=== PATIENT | female | born 1945 | race Asian ===

== ENCOUNTER 2017-11-01 03:18 | Inpatient (IN) | payer OTHER ==
[~2017-11-01] VITALS: Ht 154.9 cm; Wt 72.1 kg
--- NOTE | ~2017-11-01 | EKG ---
[place] [address] [address] [place] [address] ELECTROCARDIOGRAM REPORT Name: ANNIA FERGUSON CHA Room #: 219-P ADM IN M.R.#: [id number] Admission: 11/01/17 Attend Phys: Roland Main DO Discharge: Date of : 47 Report #: [id number] THIS REPORT FOR: //name// [facility] ED Test Date: 2017-11-01 Test Time: 03:31:22 Pat Name: ANNIA FERGUSON Department: Room: 219 Gender: F Behavioral Health Case Manager: EDGARD : 1945 Requested By: Hayley Briggs Order Number: [id number] MD: Jonh Bruno Measurements Intervals [place] Rate: 140 P: GA: QRS: 33 QRSD: 79 T: -30 QT: 314 QTc: 479 Interpretive Statements Atrial fibrillation Repolarization abnormality, prob rate related Borderline prolonged QT interval Compared to ECG 11/22/2015 00:31:02 Sinus rhythm no longer present Electronically Signed On 11-01-2017 9:06:50 TECHNOLOGY METHODOLOGY CONSULTANT by Jonh Bruno [email or web address] <ELECTRONICALLY SIGNED> By: Jonh Bruno MD, [facility] 11/01/17 0906 0 0 Jonh Bruno MD, [facility] /EPI
--- NOTE | ~2017-11-01 | 2DMMODE ---
[facility] [address] [employer] [place] [address] 2 D/M-MODE ECHOCARDIOGRAM Name: ANNIA FERGUSON [facility] Room #: 219-P ADM IN M.R.#: [id number] Admission: 11/01/17 Attend Phys: Roland Main, Discharge: Date of : 47 Date of Service: 11/01/17 1520 Report #: [id number] THIS REPORT FOR: //name// APPROVED REPORT Study performed: 11/01/2017 13:05:30 EXAM: Comprehensive 2D, Doppler, and color-flow Echocardiogram Patient Location: Bedside Room #: 219 Status: routine BSA: 1.71 BP: 127/77 mmHg Other Information Study Quality: Adequate Indications Diabetes Atrial Fibrillation Palpitations Syncope Hypertension/HDD 2D Dimensions RVDd: 26.31 mm LVEF(%): 85.54 (>50%) IVSd: 13.45 (7-11mm) LVOT Diam: 12.35 (18-24mm) LVDd: 29.33 mm PWd: 13.27 (7-11mm) LVDs: 13.72 (25-40mm) IVC: 15.00 mm Jain's LVEF: 85.54 % Volumes Left Atrial Volume (Systole) Single Plane 4CH: 27.48 mL Single Plane 2CH: 37.64 mL LA ESV Index: 21.00 mL/m2 Aortic Valve AoV Peak Dylan.: 1.28 m/s AO Peak Gr.: 7.85 mmHg LVOT Max P.82 mmHg LVOT Max V: 1.21 m/s LEXIE Vmax: 1.13 cm2 [facility] [address] [address] 2 D/M-MODE ECHOCARDIOGRAM Name: ANNIA FERGUSON NAYELI Room #: 219-P [facility] IN .R.#: [id number] Admission: 11/01/17 Attend Phys: Roland Main, Discharge: Date of : 47 Date of Service: 11/01/17 1520 Report #: [id number] Mitral Valve MV Decel. Time: 174.90 ms MV E Max Dylan.: 1.11 m/s Pulmonary Valve PV Peak Dylan.: 1.01 m/s PV Peak Gr.: 4.06 mmHg Tricuspid Valve TR Peak Dylan.: 2.22 m/s RAP Estimate: 5.00 mmHg TR Peak Gr.: 19.79 mmHg PA Pressure: 25.00 mmHg Left Ventricle The left ventricle is normal size. There is normal LV segmental wall motion. Mild to moderate concentric left ventricular hypertrophy. The left ventricular systolic function is normal. The left ventricular ejection fraction is within the normal range. LVEF is 60-65%. This study is not technically sufficient to allow evaluation of the LV diastolic function due to atrial fibrillation. Right Ventricle The right ventricle is normal size. The right ventricular systolic function is normal. Atria The left atrium size is normal. The right atrium size is normal. Aortic Valve The aortic valve is normal in structure. No aortic regurgitation is present. There is no aortic valvular stenosis. Mitral Valve Mild mitral annular calcification. There is no mitral valve regurgitation noted. No evidence of mitral valve stenosis. Tricuspid Valve The tricuspid valve is normal in structure. Mild tricuspid regurgitation. PAP is estimated at 25 mmHg. Pulmonic Valve The pulmonary valve is normal in structure. Mild pulmonic regurgitation. Great Vessels The aortic root is normal in size. IVC is normal in size and [facility] [address] [place] [address] 2 D/M-MODE ECHOCARDIOGRAM Name: ANNIA FERGUSON NAYELI Room #: 219-P ADM IN M.R.#: [id number] Admission: 11/01/17 Attend Phys: Roland Main, Discharge: Date of : 47 Date of Service: 11/01/17 1520 Report #: [id number] collapses >50% with inspiration. Pericardium There is no pericardial effusion. <Conclusion> The left ventricular systolic function is normal. Mild-moderate LVH There is normal LV segmental wall motion. LVEF 60-65%. The aortic valve is normal in structure. No aortic regurgitation or stenosis Mild mitral annular calcification. No mitral valve regurgitation noted. Mild tricuspid regurgitation. Pulmonary artery pressure is estimated at 25 mmHg. There is no pericardial effusion. <ELECTRONICALLY SIGNED> By: Jonh Bruno MD, [facility] 11/01/17 1520 1520 1520 Jonh Bruno MD, [facility] /INF
--- NOTE | ~2017-11-01 | EKG ---
[address] [address] ELECTROCARDIOGRAM REPORT Name: ANNIA FERGUSON CHA Room #: 219-[facility] IN M.R.#: [id number] Admission: 11/01/17 Attend Phys: Samy Patino MD Discharge: 11/02/17 Date of : 47 Report #: [id number] THIS REPORT FOR: //name// [facility] Test Date: 2017-11-02 Test Time: 11:03:16 Pat Name: ANNIA FERGUSON Department: Room: 219 P Gender: F Cardiac Technician: Jaime MOTA : 1945 Requested By: Sunny Noguera Order Number: [id number] MD: Sunny Noguera Measurements Intervals [place] Rate: 79 P: 36 NV: 148 QRS: 36 QRSD: 95 T: 29 QT: 398 QTc: 457 Interpretive Statements Sinus rhythm Compared to ECG 11/01/2017 03:31:22 Atrial fibrillation no longer present Early repolarization no longer present Electronically Signed On 11-02-2017 15:11:11 SALES OPERATIONS MANAGER by Sunny Noguera [email or web address] <ELECTRONICALLY SIGNED> By: Sunny Noguera MD 11/02/17 1511 1103 1103 Sunny Noguera MD /EPI
[~2017-11-01 03:18] MED LIST: APAP/CODEINE ELI5 M1 OR; CIPROFLOXACIN500 M1 PO; FLONASE 0.05%50 MCG NASAL; LIPITOR 20 MG T20 M1; METFORMIN; PENTOXIFYLLINE400 MG; PYRIDIUM100 M1 PO; TUSSIONEX PENN473 ML PO; VENTOLIN HFA 1818 GM INH; ZPAK PO
[2017-11-01 03:20] VITALS: BP 169/93
[2017-11-01] MEDS ORDERED: GLUCOPHAGE500 MG PO (03:42)
[2017-11-01 03:49] LABS: ABSOLUTE NEUTROPHILS 4.3 thou/uL (1.4-8.2); BASOPHILS 0.9 % (0.0-2.0); EOSINOPHILS 1.6 % (0.0-3.0); HEMATOCRIT 40.8 % (37.0-47.0); HEMOGLOBIN 14.3 gm/dL (12.0-15.0); LYMPHOCYTES 33.6 % (24.0-44.0); MCH 30.6 pg (26.0-34.0); MCHC 35.1 g/dL (28.0-37.0); MCV 87.2 fL (80.0-100.0); PLATELET COUNT 224 thou/uL (150-400); POLYS 56.9 % (36.0-66.0); RBC 4.68 mil/uL (4.20-5.00); RDW 13.5 % (10.5-14.5); WBC 7.6 thou/uL (4.0-11.0)
[2017-11-01 04:00] LABS: ANION GAP 9 mmol/L (7-16); BUN 16 mg/dL (7-18); CALCIUM 8.9 mg/dL (8.5-10.1); CHLORIDE 106 mmol/L (98-107); CO2 25 mmol/L (21-32); CREATININE 0.7 mg/dL (0.6-1.0); GLUCOSE 191 mg/dL (74-106); POTASSIUM 3.7 mmol/L (3.5-5.1); SODIUM 140 mmol/L (136-145)
[2017-11-01 04:02] LABS: APTT 28.8 Seconds (24.5-32.8); PROTIME 9.4 Seconds (9.3-11.4)
[2017-11-01 04:08] LABS: TROPONIN-I < 0.04 ng/mL (<0.06)
[2017-11-01 04:39] LABS: URINE BILIRUBIN NEGATIVE (Negative); URINE BLOOD TRACE (Negative); URINE CLARITY CLEAR; URINE COLOR OTHER; URINE GLUCOSE-RANDOM* TRACE (Negative); URINE KETONES NEGATIVE (Negative); URINE LEUKOCYTES NEGATIVE (Negative); URINE NITRITE NEGATIVE (Negative); URINE PROTEIN (DIPSTICK) NEGATIVE (Negative); URINE UROBILINOGEN 0.2 E.U./dl (0.2-1.0)
[2017-11-01 05:16] VITALS: BP 127/69
[2017-11-01 05:38] VITALS: BP 127/77
[2017-11-01 06:10] LABS: CHOLESTEROL 140 mg/dL (<200); HDL CHOLESTEROL 69 mg/dL (>40); LDL CHOLESTEROL 53 mg/dL (<100); TRIGLYCERIDE 93 mg/dL (<150); VLDL 19 mg/dL (<40)
[2017-11-01 11:32] VITALS: BP 127/57
[2017-11-01 16:01] VITALS: BP 109/58
[2017-11-01 20:15] VITALS: BP 91/55
[2017-11-02 04:45] VITALS: BP 93/54
[2017-11-02 08:00] VITALS: BP 101/60; BP 130/64; BP 99/59
[2017-11-02 12:00] VITALS: BP 135/80
[2017-11-02] MEDS ORDERED: PRADAXA150 MG PO (13:31)
[2017-11-02] MEDS ORDERED: CARDIZEM CD 18180 M3 PO (13:31)
[2017-11-02 13:42] VITALS: BP 135/80
== END 2017-11-02 14:05 | disposition home or self-care (01) | DRG 310 ==
LOC: ER 03:18 → EROBS 04:16 → 2N 04:16
PROVIDERS: Emergency Medicine; Nurse Practitioner Acute Care
PROC: B24BZZ4 Ultrasonography of Heart with Aorta, Transesophageal (ICD-10-PCS; principal; 2017-11-01)
DX: I48.91 Unspecified atrial fibrillation (principal); I10 Essential (primary) hypertension; E11.9 Type 2 diabetes mellitus without complications; E78.5 Hyperlipidemia, unspecified; Z86.73 Personal history of transient ischemic attack (TIA), and cerebral infarction without residual deficits; Z79.84 Long term (current) use of oral hypoglycemic drugs; Z79.899 Other long term (current) drug therapy; Z80.1 Family history of malignant neoplasm of trachea, bronchus and lung
CPT/HCPCS: 10081

== ENCOUNTER 2017-11-20 20:18 | Inpatient (IN) | payer OTHER ==
[~2017-11-20] VITALS: Ht 154.9 cm; Wt 72.1 kg
--- NOTE | ~2017-11-20 | EKG ---
[place] [address] [facility] [place] [address] ELECTROCARDIOGRAM REPORT Name: ANNIA FERGUSON CHA [facility] [id number] Admission: 11/20/17 Attend Phys: Discharge: Date of : 47 Report #: [id number] THIS REPORT FOR: //name// [facility] ED Test Date: 2017-11-20 Test Time: 20:32:42 Pat Name: ANNIA FERGUSON Department: Room: Gender: F Button Buttonhole Marker: : 1945 Requested By: Kar Lozano Order Number: [id number] MD: Sunny Noguera Measurements Intervals [place] Rate: 80 P: 5 WI: 145 QRS: 21 QRSD: 81 T: 46 QT: 372 QTc: 430 Interpretive Statements Sinus rhythm Compared to ECG 11/02/2017 11:03:16 No significant changes Electronically Signed On 11-20-2017 22:27:25 CLAIMS SERVICE REPRESENTATIVE by Sunny Noguera [email or web address] <ELECTRONICALLY SIGNED> By: Sunny Noguera MD 11/20/177 31 31 Sunny Noguera MD /KAVON
[~2017-11-20 20:18] MED LIST changes: +CARDIZEM CD 18180 M3 PO; +GLUCOPHAGE500 MG PO; +PRADAXA150 MG PO
[2017-11-20 20:21] VITALS: BP 149/73
[2017-11-20 20:58] LABS: ABSOLUTE NEUTROPHILS 6.4 thou/uL (1.4-8.2); BASOPHILS 0.6 % (0.0-2.0); EOSINOPHILS 0.9 % (0.0-3.0); HEMATOCRIT 35.2 % (37.0-47.0); HEMOGLOBIN 12.3 gm/dL (12.0-15.0); LYMPHOCYTES 29.7 % (24.0-44.0); MCH 30.5 pg (26.0-34.0); MCHC 34.8 g/dL (28.0-37.0); MCV 87.7 fL (80.0-100.0); MONOCYTES 6.5 % (1.0-8.0); PLATELET COUNT 261 thou/uL (150-400); POLYS 62.3 % (36.0-66.0); RBC 4.02 mil/uL (4.20-5.00); RDW 13.9 % (10.5-14.5); WBC 10.2 thou/uL (4.0-11.0)
[2017-11-20 21:05] LABS: ANION GAP 9 mmol/L (7-16); BUN 26 mg/dL (7-18); CALCIUM 9.3 mg/dL (8.5-10.1); CHLORIDE 104 mmol/L (98-107); CO2 26 mmol/L (21-32); GLUCOSE 227 mg/dL (74-106); SODIUM 139 mmol/L (136-145)
[2017-11-20 21:13] LABS: TROPONIN-I < 0.04 ng/mL (<0.06)
[2017-11-21] VITALS (7 sets, daily range): BP systolic 121–132; BP diastolic 76–79
[2017-11-21 05:07] LABS: HEMOGLOBIN 11.4 gm/dL (12.0-15.0); MCH 30.5 pg (26.0-34.0); MCHC 34.5 g/dL (28.0-37.0); MCV 88.3 fL (80.0-100.0); RBC 3.73 mil/uL (4.20-5.00); RDW 13.9 % (10.5-14.5); WBC 8.4 thou/uL (4.0-11.0)
[2017-11-21 05:34] LABS: ANION GAP 8 mmol/L (7-16); BUN 24 mg/dL (7-18); CALCIUM 8.7 mg/dL (8.5-10.1); CHLORIDE 106 mmol/L (98-107); CO2 26 mmol/L (21-32); CREATININE 0.9 mg/dL (0.6-1.0); GLUCOSE 171 mg/dL (74-106); POTASSIUM 3.8 mmol/L (3.5-5.1); SODIUM 140 mmol/L (136-145); TROPONIN-I < 0.04 ng/mL (<0.06)
[2017-11-21 16:12] LABS: GLYCOHEMOGLOBIN (HGB A1C) 5.8 % (4.8-5.6)
[2017-11-21] MEDS ORDERED: FLECAINIDE ACET50 M1 PO (16:25)
[2017-11-21] MEDS ORDERED: ASPIR 8181 MG PO (16:25)
== END 2017-11-21 17:22 | disposition home or self-care (01) | DRG 310 ==
LOC: ER 20:18 → 2N 11-21 03:41 → ENTRNSPT 11-21 16:53 → 2N 11-21 17:22
PROVIDERS: Nurse Practitioner; Nurse Practitioner Family
DX: I48.0 Paroxysmal atrial fibrillation (principal); E11.9 Type 2 diabetes mellitus without complications; E78.5 Hyperlipidemia, unspecified; I10 Essential (primary) hypertension; Z86.73 Personal history of transient ischemic attack (TIA), and cerebral infarction without residual deficits; Z79.899 Other long term (current) drug therapy; Z80.1 Family history of malignant neoplasm of trachea, bronchus and lung
CPT/HCPCS: 10081

== ENCOUNTER 2017-12-27 17:05 | Inpatient (IN) | payer OTHER ==
[~2017-12-27] VITALS: Ht 154.9 cm; Wt 73.3 kg
--- NOTE | ~2017-12-27 | EKG ---
[address] [address] ELECTROCARDIOGRAM REPORT Name: ANNIA FERGUSON CHA Room #: 170-9 ADM IN M.R.#: [id number] Admission: 12/27/17 Attend Phys: Trevor Freed Discharge: Date of : 47 Report #: [id number] THIS REPORT FOR: //name// [facility] ED Test Date: 2017-12-27 Test Time: 17:33:43 Pat Name: ANNIA FERGUSON Department: Room: 170 Gender: F Retail [employer] Restaurant: HUBERT : 1945 Requested By: Kar Lozano Order Number: [id number] MD: Sunny Noguera Measurements Intervals [place] Rate: 73 P: 28 MO: 153 QRS: 24 QRSD: 91 T: 27 QT: 405 QTc: 447 Interpretive Statements Sinus rhythm Compared to ECG 11/20/2017 20:32:42 No significant changes Electronically Signed On 12-27-2017 19:28:22 HEEL SPRAYER FIRST by Sunny Noguera [email or web address] <ELECTRONICALLY SIGNED> By: Sunny Noguera MD 12/27/17 1928 1733 32 Sunny Noguera MD /KAVON
--- NOTE | ~2017-12-27 | P ---
[facility] [place] [address] [address] PROCEDURE REPORT Name: ANNIA FERGUSON CHA Room #: 218-P [facility] IN M.R.#: [id number] Admission: 12/27/17 Attend Phys: Trevor Freed Discharge: 12/29/17 Date of : 47 Report #: [id number] THIS REPORT FOR: //name// CC: Darryl Freed PREOPERATIVE DIAGNOSES: 1. Paroxysmal atrial fibrillation. 2. Sick sinus syndrome. 3. Complete heart block. 4. Vasovagal syncope. 5. Recurrent syncopal episodes. PROCEDURES PERFORMED: Dual chamber pacemaker insertion. HISTORY: The patient is a 72-year-old female with a history of recurrent syncope for 15 years. She was recently admitted to the hospital with new onset paroxysmal atrial fibrillation. She has been started on antiarrhythmic drugs and has worn a prior furniture upholsterer apprentice showing no arrhythmias. She came in after having multiple syncopal episodes at home, which showed evidence of sick sinus syndrome, heart rates in the 30s as well as complete heart block with associated symptoms. She requires continuation of beta blockers and antiarrhythmic drugs and is therefore here for a dual chamber pacemaker insertion. ANESTHESIA: The patient underwent MAC anesthesia with no anesthesia related complications. DESCRIPTION OF PROCEDURE: The patient underwent informed consent. We discussed the details of the procedure including the risks, which include but not limited to bleeding, infection, vascular damage, cardiac perforation, pneumothorax. She understood these risks and is willing to proceed. As such, she was brought to the EP laboratory in a fasting and sedated state, prepped and draped in a sterile fashion and received IV antibiotics prior to initiation of the procedure. A venogram was performed and there was evidence of a patent axillary vein. Next, I injected lidocaine below the level of left clavicle. Incision was made, pocket was created over the prepectoral fascia. An access was obtained twice to left axillary vein using the extrathoracic approach. Sheaths were positioned using the modified Seldinger technique. Next, leads were positioned in the right ventricular apex and right atrial appendage both with adequate pacing and sensing thresholds. Leads were sutured to the prepectoral fascia and then, the pacemaker was connected to the leads. The pocket was irrigated with vancomycin and then, the pocket was closed in 3 layers using 2-0 for the deep layer, 3-0 for the mid layer and 4-0 for the subcuticular layer. Surgical glue was placed to the outer skin layer. The patient awoke neurologically hemodynamically intact. No complications and no significant bleeding. The implanted pacemaker was a [employer] model [facility] [address] [place] [address] PROCEDURE REPORT Name: ANNIA FERGUSON NAYELI Room #: 218-P [facility] IN M.R.#: [id number] Admission: 12/27/17 Attend Phys: Trevor Freed Discharge: 12/29/17 Date of : 47 Report #: [id number], serial #[id number], 46 cm, serial [id number] with a P-wave of 3.8 millivolts, pacing threshold of 1.2 volts at 1 millisecond and a pacing impedance of 553 ohms. The ventricular lead was a [employer] model #2088TC, 52 cm, serial #[id number]. This demonstrated R-wave of 7.0 millivolts, pacing impedance of 0.6 volts at 0.4 milliseconds, pacing impedance of 598 ohms. The device was programmed to the DDDR 60-130 mode. CONCLUSIONS: 1. Successful dual-chamber pacemaker implantation. 2. Satisfactory atrial and ventricular pacing and sensing thresholds. <ELECTRONICALLY SIGNED> By: Sunny Noguera MD 02/17/18 1513 1114 1250 Sunny Noguera MD /nt
--- NOTE | ~2017-12-27 | 24HR ---
[facility] [address] [employer] [address] 24 HR ELECTROCARDIOGRAM REPORT Name: ANNIA FERGUSON CHA Room #: 218-P [facility] IN M.R.#: [id number] Admission: 12/27/17 Attend Phys: Trevor Solorio Discharge: 12/29/17 Date of : 47 Date of Service: 01/13/18 1725 Report #: [id number] THIS REPORT FOR: //name// CC: Darryl Freed DIAGNOSES: 1. Syncope. 2. Heart block. 3. Tachycardia bradycardia syndrome. 4. Paroxysmal atrial fibrillation. HISTORY: The patient has a history of recurrent syncope that is longstanding, as well as recently diagnosed paroxysmal atrial fibrillation, recently started on antiarrhythmic drugs, who presented after multiple recurrent syncopal episodes at home. In the hospital, she was noted to have intermittent episodes of complete heart block. She requires continuation of her antiarrhythmic drugs and therefore will require dual chamber pacemaker insertion. ANESTHESIA: The patient underwent MAC anesthesia with no anesthesia related complications. PROCEDURE: The patient underwent informed consent. We discussed the details of the procedure including the risks, which include but not limited to bleeding, infection, vascular damage, cardiac perforation, pneumothorax. She understood these risks and is willing to proceed. As such, she is brought to the EP laboratory in fasting and unsedated state, prepped and draped in sterile fashion. She received IV antibiotics and underwent a venogram showing patency of left axillary vein. I injected lidocaine below the level of clavicle. Incision was made. A pocket was created over the prepectoral fashion and access was obtained twice to left axillary vein using the extrathoracic approach with sheaths positioned using the modified Seldinger technique. Next, leads were positioned in the right ventricular apex and right atrial appendage both with adequate pacing and sensing thresholds and they were sutured to the prepectoral fascia. The device was connected and tested and found to be functioning normally and then the pocket was irrigated with vancomycin and then the pocket was closed in 3 layers with surgical glue placed in the outer skin layer. The patient awoke neurologically and hemodynamically intact. No complications. No significant bleeding. The implanted pacemaker was a [employer] model # [id number], serial #[id number] with an atrial lead that was [employer] model #2088TC, 46 cm, serial #[id number] with P-wave of 3.8 millivolts, pacing threshold of 1.2 volts at 1 millisecond and an impedance of 553 ohms. The RV lead was a [employer] model #2088TC, 52 cm, serial number [id number] with an R-wave of 7 millivolts, pacing threshold 0.6 volts at 0.4 milliseconds, a pacing impedance of 598 ohms. Device is programmed to the DDDR 60-130 mode. CONCLUSION: [facility] [address] [place] [address] 24 HR ELECTROCARDIOGRAM REPORT Name: ANNIA FERGUSON CHA Room #: 218-P [facility] IN M.R.#: [id number] Admission: 12/27/17 Attend Phys: Trevor Solorio Discharge: 12/29/17 Date of : 47 Date of Service: 01/13/18 1725 Report #: [id number] 1. Successful dual-chamber pacemaker implantation. 2. Satisfactory atrial and ventricular pacing and sensing thresholds. <ELECTRONICALLY SIGNED> By: Sunny Noguera MD 02/10/18 1409 1725 1905 Sunny Noguera MD /nt
--- NOTE | ~2017-12-27 | EKG ---
[address] [place] [employer] [address] ELECTROCARDIOGRAM REPORT Name: ANNIA FERGUSON CHA Room #: 218-P ADM IN M.R.#: [id number] Admission: 12/27/17 Attend Phys: Trevor Freed Discharge: Date of : 47 Report #: [id number] THIS REPORT FOR: //name// [facility] ED Test Date: 2017-12-27 Test Time: 18:57:03 Pat Name: ANNIA FERGUSON Department: Room: 218 P Gender: F Primary Class Teacher: MZOOK : 1945 Requested By: Kar Lozano Order Number: [id number] MD: Jonh Bruno Measurements Intervals [place] Rate: 26 P: 34 CT: 219 QRS: 31 QRSD: 97 T: 52 QT: 466 QTc: 307 Interpretive Statements Sinus bradycardia with complete heart block Compared to ECG 12/27/2017 17:33:43 Complete heart block is now present Electronically Signed On 12-28-2017 7:57:06 [employer] by Jonh Bruno [email or web address] <ELECTRONICALLY SIGNED> By: Jonh Bruno MD, [facility] 12/28/17 0757 56 56 Jonh Bruno MD, [facility] /EPI
[~2017-12-27 17:05] MED LIST changes: +ASPIR 8181 MG PO; +FLECAINIDE ACET50 M1 PO
[2017-12-27 17:06] VITALS: BP 199/92
[2017-12-27] MEDS ORDERED: COZAAR 25 MG TA25 M1 PO (17:11)
[2017-12-27] MEDS ORDERED: PRADAXA150 MG PO (17:11)
[2017-12-27 17:34] LABS: ABSOLUTE NEUTROPHILS 4.5 thou/uL (1.4-8.2); BASOPHILS 0.6 % (0.0-2.0); EOSINOPHILS 1.1 % (0.0-3.0); HEMATOCRIT 38.9 % (37.0-47.0); HEMOGLOBIN 13.4 gm/dL (12.0-15.0); LYMPHOCYTES 33.6 % (24.0-44.0); MCH 30.4 pg (26.0-34.0); MCHC 34.5 g/dL (28.0-37.0); MCV 88.2 fL (80.0-100.0); MONOCYTES 6.8 % (1.0-8.0); PLATELET COUNT 253 thou/uL (150-400); POLYS 57.9 % (36.0-66.0); RBC 4.42 mil/uL (4.20-5.00); RDW 14.6 % (10.5-14.5); WBC 7.8 thou/uL (4.0-11.0)
[2017-12-27 17:43] LABS: ANION GAP 9 mmol/L (7-16); BUN 16 mg/dL (7-18); CHLORIDE 107 mmol/L (98-107); CO2 26 mmol/L (21-32); CREATININE 0.7 mg/dL (0.6-1.0); GLUCOSE 112 mg/dL (74-106); POTASSIUM 3.8 mmol/L (3.5-5.1); SODIUM 142 mmol/L (136-145)
[2017-12-27 17:52] LABS: TROPONIN-I < 0.04 ng/mL (<0.06)
[2017-12-27 18:16] LABS: URINE BILIRUBIN NEGATIVE (Negative); URINE BLOOD NEGATIVE (Negative); URINE CLARITY CLEAR; URINE COLOR YELLOW; URINE GLUCOSE-RANDOM* NEGATIVE (Negative); URINE KETONES NEGATIVE (Negative); URINE LEUKOCYTES NEGATIVE (Negative); URINE NITRITE NEGATIVE (Negative); URINE PROTEIN (DIPSTICK) NEGATIVE (Negative); URINE SPECIFIC GRAVITY <= 1.005 (1.005-1.035); URINE UROBILINOGEN 0.2 E.U./dl (0.2-1.0)
[2017-12-27 20:18] VITALS: BP 163/86
[2017-12-27 20:45] VITALS: BP 162/75
[2017-12-27 23:35] VITALS: BP 147/84
[2017-12-28 03:14] VITALS: BP 119/61
[2017-12-28 04:52] LABS: PROTIME 10.2 Seconds (9.3-11.4)
[2017-12-28 04:59] LABS: ALBUMIN 3.2 g/dL (3.4-5.0); ANION GAP 8 mmol/L (7-16); BUN 19 mg/dL (7-18); CALCIUM 8.5 mg/dL (8.5-10.1); CHLORIDE 111 mmol/L (98-107); CO2 25 mmol/L (21-32); CREATININE 0.8 mg/dL (0.6-1.0); GLUCOSE 208 mg/dL (74-106); POTASSIUM 3.8 mmol/L (3.5-5.1); SODIUM 144 mmol/L (136-145); TROPONIN-I < 0.04 ng/mL (<0.06)
[2017-12-28 08:08] VITALS: BP 174/97
[2017-12-28 15:46] VITALS: BP 140/72
[2017-12-28 19:45] VITALS: BP 131/64
[2017-12-29] VITALS (8 sets, daily range): BP systolic 111–165; BP diastolic 75–86
[2017-12-29] MEDS ORDERED: HYDROCODON-ACE1 EAC7 PO (10:52)
== END 2017-12-29 16:00 | disposition home or self-care (01) | DRG 243 ==
LOC: ER 17:05 → 2N 18:36 → EROBS 18:36 → 2N 20:29 → ENTRNSPT 12-29 13:36 → EDTRNSPTSTS 12-29 13:39 → 2N 12-29 16:00
PROVIDERS: Hospitalist; Internal Medicine Cardiovascular Disease; Nurse Practitioner
DX: I44.2 Atrioventricular block, complete (principal); E44.1 Mild protein-calorie malnutrition; E11.9 Type 2 diabetes mellitus without complications; E78.5 Hyperlipidemia, unspecified; I48.91 Unspecified atrial fibrillation; I49.5 Sick sinus syndrome; I10 Essential (primary) hypertension; Z86.73 Personal history of transient ischemic attack (TIA), and cerebral infarction without residual deficits; Z79.899 Other long term (current) drug therapy; Z80.1 Family history of malignant neoplasm of trachea, bronchus and lung
CPT/HCPCS: 10081; 62110; 62900; 70005

== ENCOUNTER → 2018-07-26 | Outpatient (CLI) | payer OTHER ==
[~2018-07-26] MED LIST changes: +COZAAR 25 MG TA25 M1 PO; +HYDROCODON-ACE1 EAC7 PO
== END | disposition home or self-care (01) ==
LOC: RAD 10:00
DX: M17.11 Unilateral primary osteoarthritis, right knee (principal); M23.91 Unspecified internal derangement of right knee; I10 Essential (primary) hypertension; E11.9 Type 2 diabetes mellitus without complications; I48.91 Unspecified atrial fibrillation; I49.5 Sick sinus syndrome; Z87.440 Personal history of urinary (tract) infections; Z87.09 Personal history of other diseases of the respiratory system; Z79.01 Long term (current) use of anticoagulants; Z79.899 Other long term (current) drug therapy; Z98.890 Other specified postprocedural states

== ENCOUNTER 2019-08-18 15:52 | Emergency (ER) | payer OTHER ==
[~2019-08-18] VITALS: Ht 154.9 cm; Wt 71.2 kg
[2019-08-18 15:54] VITALS: BP 179/99
[2019-08-18] MEDS ORDERED: PROAIR HFA8.5 GM INH (16:18)
[2019-08-18] MEDS ORDERED: TESSALON PERLE100 M1 PO (16:18)
== END 2019-08-18 16:37 | disposition home or self-care (01) ==
LOC: ER 15:52
DX: R05 Cough (principal); R09.81 Nasal congestion; R06.02 Shortness of breath; E11.9 Type 2 diabetes mellitus without complications; I10 Essential (primary) hypertension; E78.5 Hyperlipidemia, unspecified

== ENCOUNTER 2019-12-19 23:32 | Emergency (ER) | payer OTHER ==
[~2019-12-19] VITALS: Ht 154.9 cm; Wt 72.6 kg
[~2019-12-19 23:32] MED LIST changes: +PROAIR HFA8.5 GM INH; +TESSALON PERLE100 M1 PO
[2019-12-20 00:18] LABS: ANION GAP 11 mmol/L (7-16); BUN 17 mg/dL (7-18); CALCIUM 8.9 mg/dL (8.5-10.1); CHLORIDE 105 mmol/L (98-107); CO2 27 mmol/L (21-32); CREATININE 0.7 mg/dL (0.6-1.0); GLUCOSE 164 mg/dL (74-106); POTASSIUM 3.1 mmol/L (3.5-5.1); SODIUM 143 mmol/L (136-145)
[2019-12-20 00:20] LABS: APTT 32.4 Seconds (24.5-32.8); PROTIME 10.1 Seconds (9.3-11.4)
[2019-12-20 00:22] LABS: ABSOLUTE NEUTROPHILS 5.3 thou/uL (1.4-8.2); BASOPHILS 0.2 % (0.0-2.0); EOSINOPHILS 0.9 % (0.0-3.0); HEMATOCRIT 39.4 % (37.0-47.0); HEMOGLOBIN 13.3 gm/dL (12.0-15.0); LYMPHOCYTES 42.8 % (24.0-44.0); MCH 29.8 pg (26.0-34.0); MCHC 33.7 g/dL (28.0-37.0); MCV 88.5 fL (80.0-100.0); MONOCYTES 6.4 % (1.0-8.0); PLATELET COUNT 254 thou/uL (150-400); POLYS 49.7 % (36.0-66.0); RBC 4.46 mil/uL (4.20-5.00); RDW 13.7 % (10.5-14.5); WBC 10.8 thou/uL (4.0-11.0)
[2019-12-20 00:28] LABS: ALBUMIN 4.1 g/dL (3.4-5.0); SGOT 20 U/L (15-37); SGPT 24 U/L (30-65); TOTAL BILIRUBIN 0.5 mg/dL (<0.1-1.0); TOTAL PROTEIN 7.7 g/dL (6.4-8.2); TROPONIN-I <0.06 ng/mL (<0.06)
[2019-12-20 01:47] VITALS: BP 167/77
--- NOTE | 2019-12-20 08:19 | EKG ---
[facility] [place] [address] ELECTROCARDIOGRAM REPORT Name: ANNIA FERGUSON CHA Room #: [facility]#: [id number] Admission: 12/19/19 Attend Phys: Discharge: 12/20/19 Date of : 47 Report #: [id number] THIS REPORT FOR: cc: Darryl Medina MD, Douglas James MD Couchonnal,Sunny Sandoval MD ~ THIS REPORT FOR: //name// [facility] ED Test Date: 2019-12-19 Test Time: 23:51:54 Pat Name: ANNIA FERGUSON Department: Room: Gender: F Gold Leaf Roller: GWENDOLYN KAUR : 1945 Requested By: Raymond Pisano Order Number: [id number] MD: Sunny Noguera Measurements Intervals [place] Rate: 65 P: 52 [place]: 169 QRS: 28 QRSD: 98 T: 29 QT: 439 QTc: 457 Interpretive Statements Sinus rhythm Abnormal inferior Q waves Compared to ECG 12/27/2017 18:57:03 Inferior Q waves now present Q waves now present Sinus bradycardia no longer present AV block, complete (third-degree) no longer present Electronically Signed On 12-20-2019 8:18:11 SOCIAL MEDIA DEVELOPER by Sunny Noguera [email or web address] <ELECTRONICALLY SIGNED> By: Sunny Noguera MD 12/20/19817 50 50 Sunny Noguera MD /EPI
== END 2019-12-20 01:55 | disposition home or self-care (01) ==
LOC: ER 23:32
PROVIDERS: Emergency Medicine
DX: E87.6 Hypokalemia (principal); R53.1 Weakness; E11.9 Type 2 diabetes mellitus without complications; E78.5 Hyperlipidemia, unspecified